=== PATIENT | female | born 1980 | race Caucasian/White ===

== ENCOUNTER 2017-02-10 04:56 | Emergency (ER) | payer OTHER ==
[~2017-02-10] VITALS: Ht 162.6 cm; Wt 108.9 kg
[2017-02-10 05:10] VITALS: BP 129/81
== END 2017-02-10 06:03 | disposition left against medical advice (07) ==
LOC: ED 04:56
DX: Z53.21 Procedure and treatment not carried out due to patient leaving prior to being seen by health care provider (principal)